=== PATIENT | male | born 1985 | race Hispanic/Latino ===

== ENCOUNTER 2019-05-14 08:30 | Emergency (ER) | payer BC ==
[~2019-05-14] VITALS: Ht 167.6 cm; Wt 86.2 kg
[2019-05-14 08:36] VITALS: BP 149/81
[2019-05-14 08:39] VITALS: BP 149/81
--- NOTE | 2019-05-14 08:41 | NUR ---
ARRIVAL PATIENT ARRIVED TO [facility] AMBULATORY, C/O OF CHEST BURNING FOR THE PAST 2 WEEKS, TODAY THE PAIN IS WORSE, CAME TO THE ED FOR EVAL BY EDP.
--- NOTE | 2019-05-14 08:42 | PCM.EKG ---
[facility] Test Date: 2019-05-14 Test Time: 08:35:41 Pat Name: DARINAA CENTENO [facility]: [id number] Room: Gender: M Jewelry Repairer: RAQUEL : 1985 Requested By: ABHI SMALLWOOD Order Number: [id number] Reading MD: Abhi Smallwood Measurements Intervals [place] Rate: 77 P: 30 UT: 145 QRS: 30 QRSD: 92 T: 21 QT: 387 QTc: 438 Interpretive Statements Sinus rhythm No previous ECG available for comparison Electronically Signed On 05-14-2019 8:48:37 CDT by Abhi Smallwood Please click the below link to view image of tracing.
--- NOTE | 2019-05-14 08:46 | ER.PDOC ---
General Chief Complaint: Chest Pain-Cardiac Nature Stated Complaint: CP Time seen by MD: 08:39 Source: patient Exam Limitations: no limitations History of Present Illness Initial Comments two weeks of left chest pain increased with movement or touching area, no hx cad/pe/dvt/calf pain or swelling/long trips or recent surgery/rash/vomiting/diaphoresis/shortness of breath or cough. perc criteria negative. Severity/Quality: moderate Radiation: no radiation Prior CP/Workup: No Prior Chest Pain Modifying Factors: movement, palpation Nitro Today/Relief: No Nitro Taken Today Aspirin Today: No Aspirin Today Associated Symptoms: denies symptoms Allergies: Coded Allergies: No Known Allergies (Unverified , 05/14/19) Home Meds No Active Prescriptions or Reported Meds Past Medical History Medical History: no pertinent history Surgical History: no surgical history Social History Alcohol Use: occassionally Drug Use: none Constitutional: denies chills, denies fever EENTM: denies eye pain Respiratory: denies cough Cardiovascular: chest pain; denies irregular heart rate, denies lightheadedness, denies palpitations, denies syncope Gastrointestinal: denies diarrhea, denies nausea, denies vomiting Genitourinary: denies dysuria, denies flank pain Musculoskeletal: denies back pain, denies neck pain Psychiatric/Neurological: denies headache Physical Exam General Appearance: No Apparent Distress, WD/WN HEENT: PERRL/EOMI Neck: Non-Tender Respiratory: lungs clear, normal breath sounds Cardiovascular: Normal Peripheral Pulses, Regular Rate, Rhythm Gastrointestinal: Normal Bowel Sounds Extremities: Normal Range of Motion, Non-Tender, Normal Inspection, No Pedal Edema Neurologic/Psychiatric: linoleum floor layer II-XII NML as Tested, No Motor/Sensory Deficits, Alert, Normal Mood/Affect, Oriented x 3 Skin: Normal Color Comments chest wall pain to palpation reproduced exact complaint, no rash. Results/Orders Results/Orders Vital Signs Date Time Temp Pulse Resp B/P (MAP) Pulse Ox O2 Delivery O2 Flow Rate FiO2 05/14/19 08:36 98.5 76 18 05/14/19 08:36 98.5 76 18 100 Progress Progress infinit down cannot visualize imaging Departure Time of Disposition: 09:20 Disposition: 01 HOME, SELF-CARE Impression: Primary Impression: Chest pain Additional Impression: Tenderness of chest wall Condition: Stable Patient Instructions: Chest Pain (Nonspecific), Chest Pain (Nonspecific), [id number] Referrals: PCP,UNKNOWN (PCP) PRIMARY CARE PROVIDER JAY PAINTING MD Additional Instructions: see primary care doctor for further evaluation, return for any worsening symptoms, call primary care doctor today for appointment Scripts No Active Prescriptions or Reported Meds Duration or Time Spent with Pa: 15 Problem Qualifiers JERI MUNOZ MD May 14, 2019 08:46
[2019-05-14 08:54] LABS: BASOPHIL % 0.4 % (0.0-0.2); EOSINOPHIL # 0.3 10^3/uL (0.0-0.2); EOSINOPHIL % 4.3 % (0.0-5.0); LYMPHOCYTES # 2.68 10^3/uL1 (1.0-4.8); LYMPHOCYTES % 38.1 % (24.0-44.0); MEAN CORP HGB 30.7 pg (26-34); MONOCYTES # 0.7 10^3/uL (0.3-0.8); MONOCYTES % 9.7 % (5.0-12.0); NEUTROPHIL # 3.3 10^3/uL (1.8-7.7); NEUTROPHILS % 47.4 % (41.0-85.0); RED CELL DISTRIBUTION WIDTH 11.9 % (11.5-14.5)
--- NOTE | 2019-05-14 09:07 | DIREP ---
PROCEDURE:CHEST 1 VIEW COMPARISON:None. INDICATIONS:chest pain FINDINGS: LUNGS/PLEURA:No significant pulmonary parenchymal abnormalities. No effusions. VASCULATURE:Normal. Unremarkable pulmonary vasculature. CARDIAC:Normal. No cardiac silhouette abnormality or cardiomegaly. MEDIASTINUM:Normal. No visible mass or adenopathy. BONES:Normal. No fracture or visible bony lesion. OTHER:Negative. CONCLUSION:Normal examination. Dictated by: Remy Cunningham M.D. on 05/14/2019 at 09:06 AM
[2019-05-14 09:20] LABS: ALANINE AMINOTRANSFERASE(ML) 44 U/L (12-78); ALKALINE PHOSPHATASE 88 U/L (50-136); ASPARTATE AMINO TRANSFERASE 21 U/L (0-35); CARBON DIOXIDE 27.7 mmol/L (20.0-32); GLUCOSE 118 mg/dL (70-110)
[2019-05-14 09:38] VITALS: BP 152/81
== END 2019-05-14 09:41 | disposition home or self-care (01) ==
LOC: ER 08:30
DX: R07.89 Other chest pain (principal)
CPT/HCPCS: 36415; 71045; 80053; 82550; 82553; 84484; 85025; 93005; 99285